=== PATIENT | female | born 1965 | race Caucasian/White ===

== ENCOUNTER 2016-11-16 11:42 | Emergency (ER) | payer OTHER ==
[~2016-11-16] VITALS: Ht 172.7 cm; Wt 83.0 kg
[~2016-11-16 11:42] MED LIST: AMBIEN5 MG PO; AMITRIPTYLINE H10 MG PO; ASPIR 8181 M1 PO; BACTRIM,SEPT1 TABLET PO; DAILY MULTIPLE1 EACH PO; HYDROCODON-ACE1 EAC7 PO; LOMOTIL TABLET1 EACH PO; LYRICA50 MG PO; MECLIZINE HCL12.5 M1 PO; NAPROSYN500 MG PO; PROMETHAZINE HC25 M1 PO; PROZAC40 MG PO; REQUIP0.5 MG PO; SILVADENE20 GM TP; SIMVASTATIN20 MG PO; TIZANIDINE HCL4 M1 PO; TRAMADOL HCL50 MG PO; VITAMIN D250000 UNIT PO
[2016-11-16] MEDS ORDERED: ADVIL200 MG PO (12:02)
[2016-11-16] MEDS ORDERED: MOTRIN800 MG PO (13:01)
[2016-11-16] MEDS ORDERED: AUGMENTIN875 MG PO (13:01)
[2016-11-16 13:15] VITALS: BP 118/80
== END 2016-11-16 13:15 | disposition home or self-care (01) ==
LOC: EME 11:42
PROC: 0HQFXZZ Repair Right Hand Skin, External Approach (ICD-10-PCS; principal; 2016-11-16)
DX: S61.451A Open bite of right hand, initial encounter (principal); S61.252A Open bite of right middle finger without damage to nail, initial encounter; S61.551A Open bite of right wrist, initial encounter; W54.0XXA Bitten by dog, initial encounter; Y92.009 Unspecified place in unspecified non-institutional (private) residence as the place of occurrence of the external cause; E78.5 Hyperlipidemia, unspecified; M54.9 Dorsalgia, unspecified; G89.29 Other chronic pain; F32.9 Major depressive disorder, single episode, unspecified; Z85.41 Personal history of malignant neoplasm of cervix uteri
CPT/HCPCS: 73130; 99281; 99284